=== PATIENT | female | born 2005 | race Caucasian/White ===

== ENCOUNTER 2025-04-13 10:45 | Outpatient (CLI) | payer BC, SELFPAY | END 2025-04-13 10:46 | disposition home or self-care (01) | LOC: NFLDREF 04-19 16:23 | PROVIDERS: PCP Nurse Practitioner Family; Referring Provider Nurse Practitioner Family; Visit Provider Nurse Practitioner Family | DX: R53.83 Other fatigue (principal); Z11.3 Encounter for screening for infections with a predominantly sexual mode of transmission; Z13.6 Encounter for screening for cardiovascular disorders | CPT/HCPCS: 80061; 82728; 83540; 83550; 84443; 87491; 87591 ==